=== PATIENT | male | born 1980 | race Caucasian/White ===

== ENCOUNTER 2019-11-08 11:13 | Emergency (ER) | payer OTHER ==
[~2019-11-08] VITALS: Ht 182.9 cm; Wt 99.8 kg
[~2019-11-08 11:13] MED LIST: HYDROXYZINE HCL25 MG PO; MEDROL4 M1 PO
== END 2019-11-08 12:00 | disposition home or self-care (01) ==
LOC: ED 11:13
DX: S46.011A Strain of muscle(s) and tendon(s) of the rotator cuff of right shoulder, initial encounter (principal); X58.XXXA Exposure to other specified factors, initial encounter
CPT/HCPCS: 99283-25

== ENCOUNTER 2021-03-09 07:50 | Day surgery (SDC) | payer OTHER ==
[~2021-03-09] VITALS: Ht 182.9 cm; Wt 119.3 kg
[2021-03-09] MEDS ORDERED: AUGMENTIN 875-1 EACH PO (08:12)
--- NOTE | 2021-03-09 09:27 | NUR ---
03/09/21 0927 CHINO BLAIR 0921-PATIENT ARRIVES TO PACU ON 4L VIA NC. PATEINT AWAKES TO VERBAL STIMULI. DENIES PAIN AND NAUSEA. PATIENT IS ENCOURAGED TO TAKE DEEP BREATHS. HOB ELEVATED.
--- NOTE | 2021-03-10 08:08 | OR ---
[facility] [address], [place] [address] Signed DATE OF OPERATION: 03/09/2021 SURGEON: Sanjana Ferguson MD PREOPERATIVE DIAGNOSES: 1. Left proximal and mid descending colon diverticulitis. 2. Hemorrhoids. 3. Pruritus ani. POSTOPERATIVE DIAGNOSES: 1. Minimal proximal to mid descending colon diverticulosis without inflammatory changes. 2. Minimal internal and external hemorrhoid tissue. 3. Single right-sided 2-3 mm external anal skin tags. PROCEDURE: Colonoscopy without biopsy. ESTIMATED BLOOD LOSS: None. 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 In January, he developed left-sided abdominal pain. He had gone to the emergency room twice. He had two CT scans performed. His diverticulitis appears to be in the proximal to mid descending colon. He was initially started on Cipro and Flagyl. It appears the Flagyl caused hematuria. Therefore, the antibiotics have been discontinued and he was switched over to Augmentin for 10 days. When he went back, the followup CT scan showed the inflammatory changes had markedly improved. There is description of a 7 cm length of descending colon that was a bit thickened. He tried to go back to work, but he said the utility belt was causing too much pain on the left side of his abdomen. Therefore, he has been out to work. He had asked to see me urgently in my office. On my 1st day back from vacation, I had him come to the office. He said he does well around the house, but when he has to lift or use the utility belt he said it is still causing some pain. He had been online, reading about diverticulitis. He said it generally caused confusion. He told me there is no family history of colon cancer, colon polyps or inflammatory bowel disease. Overall, he said he does feel better, but he does not feel the pain has resolved. On physical exam, he seemed to have some mild tenderness in the left quadrant of f the abdomen. He certainly did not have peritonitis. I had given him our brochure on diverticulitis and diverticulosis. We went through it page by page. We also gave him a booklet on colonoscopy. We reviewed colonoscopy in detail. He told me Electronically Signed By: SANJANA FERGUSON MD 03/10/21 0808 PATIENT NAME: CALEB MARIE OPERATIVE REPORT DATE OF : 76 REPORT #: [id number] PHYSICIAN: SANJANA FERGUSON MD PCP: JOHN THOMAS MD REPORT IS CONFIDENTIAL AND NOT TO BE RELEASED WITHOUT AUTHORIZATION [facility] [address], [place] [address] Signed he already watched a video on the Internet with respect to colonoscopies. He understands there is risk including, but not limited to gas bloating, crampy abdominal pain, bleeding, perforation requiring surgery, and missed diagnosis. He also understands the need for IV conscious sedation. He told me his friend will be taking him home. We also gave him an additional 14 days of Augmentin. He has one or two days left. He told me overall he thinks he is continuing to improve. He had expressed understanding and wished to proceed. PROCEDURE NOTE: Caleb was taken into our endoscopy suite and placed in the left lateral decubitus position. He was given a total of 7 mg of Versed and 150 mcg of fentanyl to cover the case. A digital rectal exam was performed and he has excellent perianal hygiene. No obvious physical findings for pruritus ani. He did have a tiny 2 or 3 mm external anal skin tag on the right side. He had good sphincter tone. Prostate mildly indurated and mildly enlarged. No masses. The adult colonoscope was then introduced and advanced under direct visualization of camera without difficulty. He took a little extra sedation in order to advance the scope. We then used just a little abdominal compression to advance the scope directly into the cecum itself. His prep was quite good. We could easily see the appendiceal orifice and the ileocecal valve. The scope was then slowly withdrawn. We took pictures throughout for photodocumentation. We found minimal diverticula in the proximal mid descending colon. They were small in size, few in number, and scattered about. The mucosa was quite healthy without any inflammatory changes. The abdomen insufflated well and seemed to be quite pliable. The sigmoid colon was unremarkable. The rectum was unremarkable. Upon retroflexion of the scope, there was very minimal anything in the way of any hemorrhoid tissue. After this, the gas was suctioned out and the colonoscope removed. Caleb tolerated the procedure quite well. RECOMMENDATIONS: I will see Caleb back in my office in 7 to 10 days to review his results. If he is feeling better and wants to return to work before then, it is certainly fine. He will finish up his Augmentin. Sanjana Ferguson MD ALB/MODL /[id number] Electronically Signed By: SANJANA FERGUSON MD 03/10/21 0808 PATIENT NAME: CALEB MARIE OPERATIVE REPORT DATE OF : 76 REPORT #: [id number] PHYSICIAN: SANJANA FERGUSON MD PCP: JOHN THOMAS MD REPORT IS CONFIDENTIAL AND NOT TO BE RELEASED WITHOUT AUTHORIZATION [address] [place], [place] [address] Signed cc: MD John Romero MD Copies: SANJANA FERGUSON MD, RUSSELL BARR MD ~ Electronically Signed By: SANJANA FERGUSON MD 03/10/21 0808 PATIENT NAME: CALEB MARIEN OPERATIVE REPORT DATE OF : 76 REPORT #: [id number] PHYSICIAN: SANJANA FERGUSON MD PCP: JOHN THOMAS MD REPORT IS CONFIDENTIAL AND NOT TO BE RELEASED WITHOUT AUTHORIZATION
== END 2021-03-09 10:05 | disposition home or self-care (01) ==
LOC: DS 07:50 → OPS 07:50 → DS 10:30 → OPS 10:30
PROVIDERS: ATTEND Colon & Rectal Surgery
PROC: 0DJD8ZZ Inspection of Lower Intestinal Tract, Via Natural or Artificial Opening Endoscopic (ICD-10-PCS; principal; 2021-03-09 08:50)
DX: K57.92 Diverticulitis of intestine, part unspecified, without perforation or abscess without bleeding (principal); K64.4 Residual hemorrhoidal skin tags; L29.0 Pruritus ani; Z20.822 Contact with and (suspected) exposure to COVID-19
CPT/HCPCS: 99153; G0500; J2250; J3010; J7121

== ENCOUNTER 2022-03-25 08:04 | Emergency (ER) | payer OTHER ==
[~2022-03-25] VITALS: Ht 182.9 cm; Wt 122.0 kg
[~2022-03-25 08:04] MED LIST changes: +AUGMENTIN 875-1 EACH PO
[2022-03-25] MEDS ORDERED: METRONIDAZOLE500 MG PO (11:39)
[2022-03-25] MEDS ORDERED: CIPRO500 MG PO (11:39)
== END 2022-03-25 11:45 | disposition home or self-care (01) ==
LOC: ED 08:04
DX: K57.32 Diverticulitis of large intestine without perforation or abscess without bleeding (principal)
CPT/HCPCS: 36415; 74177; 80053; 81003; 83690; 85025; 99284-25

== ENCOUNTER 2022-06-08 10:08 | Emergency (ER) | payer OTHER ==
[~2022-06-08] VITALS: Ht 182.9 cm; Wt 121.3 kg
[~2022-06-08 10:08] MED LIST changes: +CIPRO500 MG PO; +METRONIDAZOLE500 MG PO
== END 2022-06-08 11:27 | disposition home or self-care (01) ==
LOC: ED 10:08
DX: N49.2 Inflammatory disorders of scrotum (principal)
CPT/HCPCS: 99283; A9270